=== PATIENT | male | born 1945 | race Caucasian/White ===

== ENCOUNTER 2016-11-21 21:01 | Inpatient (IN) | payer OTHER, MEDICARE ==
[~2016-11-21] VITALS: Ht 175.3 cm; Wt 97.6 kg
[~2016-11-21 21:01] MED LIST: AMBI5TAB PO; APIX2.5T PO; ASPI1TAB7 PO; ATOR40TA49 PO; CARV25TA PO; CLOP75 PO; CYMB60CA PO; DIGO0.12 PO; ISOS60 PO; KCL20 PO; LANTUS2P SC; LYRI100C PO; NOVOLOGSS SQ; REQU4TAB3 PO; ROBIDMS PO; TORS20 PO; VALA1TAB PO; VALS80 PO
[2016-11-21 21:13] VITALS: BP 194/144; PULSE 105; RESP 14
--- NOTE | 2016-11-21 21:17 | PD ---
HPI Chief Complaint: Respiratory Symptoms Time Seen by Provider: 21:17 Travel History International Travel<30 days: No Contact w/Intl Traveler<30days: No Traveled to known affect area: No PFSH Past Medical History Hx Anticoagulant Therapy: Yes Autoimmune Disease: No Anxiety: Yes Cancer: No Cardiac Catheterization: Yes Cardiovascular Problems: Yes (STENTS X5, DEFIB PACER) High Cholesterol: Yes Chest Pain: Yes Congestive Heart Failure: Yes Coronary Artery Disease: Yes Diabetes: Yes Diminished Hearing: Yes Deep Vein Thrombosis: Yes (THROMBOPHLEBITIS) Endocrine: Yes Gastrointestinal Disorders: Yes Genitourinary: Yes Hypertension: Yes Immune Disorder: No Implanted Vascular Access Dvce: Yes Musculoskeletal: No Neurologic: No Psychiatric: Yes Reproductive: No Respiratory: Yes (ARDS) Myocardial Infarction: Yes Renal Failure: Yes Sleep Apnea: Yes (CPAP) Thyroid Disease: Yes Past Surgical History Abdominal Surgery: Yes (PARTIAL SIGMOID COLECTOMY/TRELL) AICD: Yes (2013) Cardiac Surgery: Yes Cholecystectomy: Yes Coronary Stent: Yes (2010, 2014) Oral Surgery: Yes (WISDOM TEETH) Pacemaker: Yes (pacer/defibrillator) Tonsillectomy: Yes Other Surgery: Yes (IVC FILTER) Social History Alcohol Use: No Tobacco Use: No Substance Use: No Allergies-Medications (Allergen,Severity, Reaction): Coded Allergies: Bee Sting (Verified Allergy, Severe, Anaphylaxis, 08/25/15) Lisinopril (Verified Allergy, Severe, THROAT CLOSING, 08/25/15) Neosporin (Verified Allergy, Intermediate, RASH, 08/25/15) Polysporin (Verified Allergy, Intermediate, RASH, 08/25/15) Latex (Unverified Allergy, Unknown, Wheezing, 08/25/15) Propofol (Verified Adverse Reaction, Severe, 08/25/15) AGITATION Reported Meds & Prescriptions Reported Meds & Active Scripts Active Demadex (Torsemide) 20 Mg Tab 50 Mg PO DAILY 31 Days Diovan (Valsartan) 80 Mg Tab 80 Mg PO BID 31 Days Plavix (Clopidogrel Bisulfate) 75 Mg Tab 75 Mg PO DAILY 30 Days Robitussin Dm 10 Ml Udc (Guaifenesin/Dextromethorphan) 10 Ml Liqd 10 Ml PO Q6 PRN 10 Days Eliquis (Apixaban) 2.5 Mg Tab 2.5 Mg PO BID PRN 90 Days Lipitor 40 Mg Tab (Atorvastatin Calcium) 40 Mg Tab 40 Mg PO DAILY 30 Days Kcl 20 Meq Tab (Potassium Chloride) 20 Meq Tabcr 40 Meq PO BID 30 Days Imdur 60 Mg (Isosorbide Mononitrate) 60 Mg Tabcr 60 Mg PO DAILY Reported Ambien (Zolpidem Tartrate) 5 Mg Tab 5 Mg PO HS Novolog Insulin Supplemental Scale (Insulin Aspart) 100 /Ml Inj 2-12 Units SQ TIDACHS Max dose at bedtime:( )units; sugars less than 70, (0)units; sugars 150-199, (2)units; sugars 200-249, (4)units; sugars 250-299,(7)units; sugars 300-349, (10)units; sugars greater than 349, (12)units Lantus (Insulin Glargine) 100 Units/Ml Inj 50 Unit SC HS Valacyclovir Hcl (Valacyclovir HCl) 1 Gm Tab 1 Gm PO DAILY Aspirin 81 mg Tab (Aspirin) 81 Mg Tab 81 Mg PO DAILY Requip 4 mg (ROPINIROLE HYDROCHLORIDE 4 mg) 4 Mg Tab 4 Mg PO HS Carvedilol 25 mg (Carvedilol) 25 Mg Tab 25 Mg PO BID Cymbalta (Duloxetine HCl) 60 Mg Cap 60 Mg PO HS Lyrica (Pregabalin) 100 Mg Cap 100 Mg PO TID Digoxin 0.125 mg (Digoxin) 0.125 Mg Tab 0.125 Mg PO DAILY Data Data Last Documented VS Vital Signs Date Time Temp Pulse Resp B/P Pulse Ox O2 Delivery O2 Flow Rate FiO2 11/21/16 21:13 105 14 194/144 Thomas Marie Nov 21, 2016 21:17
[2016-11-21 21:28] VITALS: BP 220/129; PULSE 105; RESP 22; TEMP 97.9; O2SAT 93
[2016-11-21] MEDS ORDERED: SODIUM CHLORIDE 0.9% FLUSH 5 ML FLUSH IVF PRN (21:30)
[2016-11-21 21:34] VITALS: BP 137/66; PULSE 103; RESP 26; O2SAT 96
[2016-11-21] MEDS ORDERED: NITROGLYCERIN 2% OINT 1 GM PACKET TOP ONE (21:45)
[2016-11-21] MEDS ORDERED: MORPHINE SULFATE 4 MG/ML INJ IV ONE (21:45)
[2016-11-21] MEDS ORDERED: NITROGLYCERIN-DEXTROSE INJ 250 ML IV ONE (21:45)
[2016-11-21] MEDS ORDERED: ONDANSETRON HCL 4 MG/2 ML VIAL IVP ONE (21:45)
[2016-11-21 21:48] LABS: AUTOMATED NEUTROPHIL # 10.9 TH/MM3 (1.8-7.7); BASOPHIL # 0.1 TH/MM3 (0-0.2); BASOPHIL % 0.9 % (0.0-2.0); EOSINOPHIL # 0.3 TH/MM3 (0-0.4); EOSINOPHIL % 1.8 % (0.0-4.0); HEMATOCRIT 53.9 % (39.0-51.0); HEMO FLAGS DIFF FINAL; LYMPH % 11.2 % (9.0-44.0); LYMPHOCYTE # 1.6 TH/MM3 (1.0-4.8); MEAN CORPUSCULAR HEMOGLOBIN 33.5 PG (27.0-34.0); MEAN CORPUSCULAR HGB CONC 34.5 % (32.0-36.0); MONO % 10.7 % (0.0-8.0); NEUT % 75.4 % (16.0-70.0); PLATELET COUNT 172 TH/MM3 (150-450); RED BLOOD COUNT 5.56 MIL/MM3 (4.50-5.90); RED CELL DISTRIBUTION WIDTH 15.3 % (11.6-17.2); WHITE BLOOD COUNT 14.5 TH/MM3 (4.0-11.0)
--- NOTE | 2016-11-21 21:55 | PD ---
HPI Chief Complaint: Respiratory Symptoms Time Seen by Provider: 21:17 Travel History International Travel<30 days: No Contact w/Intl Traveler<30days: No Traveled to known affect area: No History of Present Illness HPI 71-year-old male presents with abdominal pain and nausea that is been present over the past couple of days. He states that he has history of prior sigmoid colectomy from prior bleeding issues and he is concerned he is developed a sigmoid volvulous. He denies prior history of volvulous. He states a couple hours ago he also developed chest pain and shortness of breath. He states Dr. Rodriguez is his chief architect. He states his last cardiac catheterization was about a year and a half ago when he had a stent placed. Quality pain is sharp. Severity is moderate. He denies specific modifying factors. He denies other concurrent complaints. PFSH Past Medical History Hx Anticoagulant Therapy: Yes Arthritis: Yes Autoimmune Disease: No Anxiety: Yes Cancer: No Cardiac Catheterization: Yes Cardiovascular Problems: Yes (5 stents) High Cholesterol: Yes Chest Pain: Yes Congestive Heart Failure: Yes Coronary Artery Disease: Yes Diabetes: Yes Patient Takes Glucophage: No Diminished Hearing: Yes (hearing aids) Deep Vein Thrombosis: Yes (THROMBOPHLEBITIS) Endocrine: Yes Gastrointestinal Disorders: Yes Genitourinary: Yes Hypertension: Yes Immune Disorder: No Implanted Vascular Access Dvce: Yes Medical other: Yes (right ankle fracture) Musculoskeletal: No Neurologic: Yes (neuropathy) Psychiatric: Yes Reproductive: No Respiratory: Yes (ARDS) Immunizations Current: Yes Myocardial Infarction: Yes Renal Failure: Yes Sleep Apnea: Yes (CPAP) Thyroid Disease: Yes Influenza Vaccination: No Past Surgical History Abdominal Surgery: Yes (PARTIAL SIGMOID COLECTOMY/TRELL) AICD: Yes Cardiac Surgery: Yes Cholecystectomy: Yes Coronary Stent: Yes (2010, 2014) Oral Surgery: Yes (WISDOM TEETH) Pacemaker: Yes Tonsillectomy: Yes Other Surgery: Yes (partial colectomy of sigmoid colon, ivc filter) Social History Alcohol Use: No Tobacco Use: No Substance Use: No Allergies-Medications (Allergen,Severity, Reaction): Coded Allergies: Bee Sting (Verified Allergy, Severe, Anaphylaxis, 11/21/16) Lisinopril (Verified Allergy, Severe, THROAT CLOSING, 11/21/16) Neosporin (Verified Allergy, Intermediate, RASH, 11/21/16) Polysporin (Verified Allergy, Intermediate, RASH, 11/21/16) Latex (Unverified Allergy, Unknown, Wheezing, 11/21/16) Propofol (Verified Adverse Reaction, Severe, 11/21/16) AGITATION Reported Meds & Prescriptions Reported Meds & Active Scripts Active Reported Novolog Inj (Insulin Aspart) 1,000 Unit/10 Ml Vial 0 SQ DIRECTED Sliding Scale as directed. Imodium A-D (Loperamide HCl) 2 Mg Cap 2 Mg PO DIRECTED PRN One capsule after each loose stool. Not to exceed 8 tablets per day. Plavix (Clopidogrel Bisulfate) 75 Mg Tab 75 Mg PO DAILY Lorazepam 1 Mg Tab 1 Mg PO PRN PRN Testosterone (Testosterone (Bulk)) 1 Pow Pow 200 Mg IM Q 3 WEEKS Aspirin 81 Mg Chew 81 Mg CHEW DAILY Potassium 75 Mg Tab 200 Meq PO BID Valacyclovir (Valacyclovir HCl) 1 Gm Tab 1,000 Mg PO DAILY Cymbalta DR (Duloxetine HCl) 60 Mg Capdr 60 Mg PO HS Lyrica (Pregabalin) 100 Mg Cap 100 Mg PO TID Ropinirole 4 Mg Tab 4 Mg PO HS Eliquis (Apixaban) 2.5 Mg Tab 2.5 Mg PO BID Carvedilol 25 Mg Tab 25 Mg PO BID Torsemide 100 Mg Tab 50 Mg PO DAILY Isosorbide Mononitrate 20 Mg Tab 60 Mg PO BID Take 2 doses 7 hours apart. Digoxin 0.125 Mg Tab 0.125 Mg PO DAILY Atorvastatin (Atorvastatin Calcium) 80 Mg Tab 80 Mg PO HS Lantus Inj (Insulin Glargine) 1,000 Unit/10 Ml Vial 60 Units SQ HS Ciprofloxacin (Ciprofloxacin HCl) 500 Mg Tab 500 Mg PO BID Review of Systems Except as stated in HPI: all other systems reviewed are Neg Physical Exam Narrative GENERAL: Well-nourished, well-developed patient. SKIN: Warm and dry. HEAD: Normocephalic and atraumatic. EYES: No injection or drainage. ENT: No nasal drainage noted. NECK: Supple, trachea midline. CARDIOVASCULAR: Regular rate and rhythm RESPIRATORY: Breath sounds equal bilaterally. No accessory muscle use. GASTROINTESTINAL: Abdomen soft, mild diffusely tender, nondistended. NEUROLOGICAL: Awake and alert. Motor and sensory grossly within normal limits. Normal speech. Data Data Last Documented VS Vital Signs Date Time Temp Pulse Resp B/P Pulse Ox O2 Delivery O2 Flow Rate FiO2 11/21/16 22:45 95 20 152/87 93 Nasal Cannula 4 11/21/16 21:28 97.9 Orders Electrocardiogram (11/21/16 21:24) B-Type Natriuretic Peptide (11/21/16 21:24) Ckmb (Isoenzyme) Profile (11/21/16 21:24) Complete Blood Count With Diff (11/21/16 21:24) Comprehensive Metabolic Panel (11/21/16 21:24) Magnesium (Mg) (11/21/16 21:24) Prothrombin Time / Inr (Pt) (11/21/16 21:24) Act Partial Throm Time (Ptt) (11/21/16 21:24) Troponin I (11/21/16 21:24) Lipase (11/21/16 21:24) Chest, Single Ap (11/21/16 21:24) Ecg Monitoring (11/21/16 21:24) Bilateral Bp Monitoring (11/21/16 21:24) Iv Access Insert/Monitor (11/21/16 21:24) Oximetry (11/21/16 21:24) Sodium Chloride 0.9% Flush (Ns Flush) (11/21/16 21:30) Nitroglycerin-Dextrose Inj (Nitroglyceri (11/21/16 21:45) Nitroglycerin 2% Oint (Nitroglycerin 2% (11/21/16 21:45) Morphine Inj (Morphine Inj) (11/21/16 21:45) Ondansetron Inj (Zofran Inj) (11/21/16 21:45) Consult Cardiology (11/21/16 ) CKMB (11/21/16 21:30) CKMB% (11/21/16 21:30) (Hub Use Only)Inp Phy Cons/Ref (11/21/16 ) Ct Abd/Pel W/O Iv Contrast (11/21/16 ) Labs Laboratory Tests Test 11/21/16 21:30 White Blood Count 14.5 TH/MM3 Red Blood Count 5.56 MIL/MM3 Hemoglobin 18.6 GM/DL Hematocrit 53.9 % Mean Corpuscular Volume 97.0 FL Mean Corpuscular Hemoglobin 33.5 PG Mean Corpuscular Hemoglobin 34.5 % Concent Red Cell Distribution Width 15.3 % Platelet Count 172 TH/MM3 Mean Platelet Volume 10.2 FL Neutrophils (%) (Auto) 75.4 % Lymphocytes (%) (Auto) 11.2 % Monocytes (%) (Auto) 10.7 % Eosinophils (%) (Auto) 1.8 % Basophils (%) (Auto) 0.9 % Neutrophils # (Auto) 10.9 TH/MM3 Lymphocytes # (Auto) 1.6 TH/MM3 Monocytes # (Auto) 1.5 TH/MM3 Eosinophils # (Auto) 0.3 TH/MM3 Basophils # (Auto) 0.1 TH/MM3 CBC Comment DIFF FINAL Differential Comment Prothrombin Time 11.2 SEC Prothromb Time International 1.0 RATIO Ratio Activated Partial 27.3 SEC Thromboplast Time Sodium Level 140 MEQ/L Potassium Level 4.0 MEQ/L Chloride Level 101 MEQ/L Carbon Dioxide Level 32.1 MEQ/L Anion Gap 7 MEQ/L Blood Urea Nitrogen 36 MG/DL Creatinine 2.23 MG/DL Estimat Glomerular Filtration 29 ML/MIN Rate Random Glucose 227 MG/DL Calcium Level 10.0 MG/DL Magnesium Level 2.2 MG/DL Total Bilirubin 2.2 MG/DL Aspartate Amino Transf 39 U/L (AST/SGOT) Alanine Aminotransferase 35 U/L (ALT/SGPT) Alkaline Phosphatase 109 U/L Total Creatine Kinase 117 U/L Creatine Kinase MB 2.4 NG/ML Troponin I 0.29 NG/ML B-Type Natriuretic Peptide 2488 PG/ML Total Protein 8.5 GM/DL Albumin 3.5 GM/DL Lipase 111 U/L MDM Medical Decision Making Medical Screen Exam Complete: Yes Emergency Medical Condition: Yes Medical Record Reviewed: Yes (pmh confirmed) Interpretation(s) EKG shows elevation in V1 through V3 with depression V5 V6 similar to prior CBC & BMP Diagram 11/21/16 21:30 Last 24 hours Impressions Chest X-Ray 11/21/162123 Signed Impressions: Service Date/Time: Monday, November 21, 2016 21:54 - CONCLUSION: No acute disease. No significant change has occurred. Kameron Andre MD CT abdomen shows hernia, enlarged prostate no emergent findings Differential Diagnosis Obstruction, gastroenteritis, stone, cardiac, gastritis... Narrative Course Will check blood work, chest x-ray, CT scan abdominal pelvis and reevaluate After review of EKG will discuss with chief architect although this looks similar to prior ed workup reviewed, patient updated, agrees to admit Physician Communication Physician Communication dr gipson states to place consult, hold eliquis and can talk over giving heparin in morning, can give beta rosi for further bp control as needed dr weiss agrees to admit Diagnosis Primary Impression: Unstable angina Additional Impressions: Renal insufficiency CHF (congestive heart failure) Qualified Code: I50.9 - Acute on chronic congestive heart failure, unspecified congestive heart failure type Abdominal pain Qualified Code: R10.9 - Abdominal pain, unspecified location Admitting Information Admitting Physician Requests: Admit Sarina Reed MD Nov 21, 2016 21:55
[2016-11-21 21:56] LABS: APTT (PATIENT) 27.3 SEC (24.3-30.1); PROTHROMBIN TIME - PATIENT 11.2 SEC (9.8-11.6)
[2016-11-21] MEDS ORDERED: CARV25TA PO (21:56)
[2016-11-21] MEDS ORDERED: DIGO0.12 PO (21:56)
[2016-11-21] MEDS ORDERED: APIX2.5T PO (21:56)
[2016-11-21] MEDS ORDERED: ATOR1TAB18 PO (21:56)
[2016-11-21] MEDS ORDERED: LANTUS2P SQ (21:56)
[2016-11-21] MEDS ORDERED: LORA1TAB12 PO (21:56)
[2016-11-21] MEDS ORDERED: ROPI4TAB PO (21:56)
[2016-11-21] MEDS ORDERED: LOPE7.5C PO (21:56)
[2016-11-21] MEDS ORDERED: POTA75TA PO (21:56)
[2016-11-21] MEDS ORDERED: TEST-55 IM (21:56)
[2016-11-21] MEDS ORDERED: TORS100T2 PO (21:56)
[2016-11-21] MEDS ORDERED: LYRI100C PO (21:56)
[2016-11-21] MEDS ORDERED: NOVOLOGP2 SQ (21:56)
[2016-11-21] MEDS ORDERED: VALA1TAB PO (21:56)
[2016-11-21] MEDS ORDERED: PLAV75TA29 PO (21:56)
[2016-11-21] MEDS ORDERED: ASPI81CH CHEW (21:56)
[2016-11-21] MEDS ORDERED: CIPR500T2 PO (21:56)
[2016-11-21] MEDS ORDERED: CYMB60CA PO (21:56)
[2016-11-21] MEDS ORDERED: ISOS20TA PO (21:56)
--- NOTE | 2016-11-21 22:03 | RADRPT ---
EXAM DATE/TIME: 11/21/2016 21:54 [facility] COMPARISON: CHEST SINGLE AP, August 25, 2015, 15:14. INDICATIONS : Chest pain. MEDICAL HISTORY : Hypertension. Diabetes. SURGICAL HISTORY : Pacemaker. ENCOUNTER: Initial ACUITY: 2 days PAIN SCORE: 8/10 LOCATION: Bilateral chest FINDINGS: Again noted is a pacemaker overlying the left hemithorax atherosclerotic changes inclusive of left ve ntricular cardiomegaly. Vascularity is distinct the lung jay are clear. There is no acute cardiopu lmonary process. CONCLUSION: No acute disease. No significant change has occurred. Kameron Andre MD on November 21, 2016 at 22:00 Board Certified Radiologist. This report was verified electronically.
[2016-11-21 22:29] LABS: ALKALINE PHOSPHATASE 109 U/L (45-117); ALT (GPT) 35 U/L (12-78); ANION GAP 7 MEQ/L (5-15); AST (GOT) 39 U/L (15-37); BICARBONATE 32.1 MEQ/L (21.0-32.0); BLOOD UREA NITROGEN 36 MG/DL (7-18); CHLORIDE 101 MEQ/L (98-107); CREATINE KINASE 117 U/L (39-308); GLOMERULAR FILTRATION RATE 29 ML/MIN (>89); MAGNESIUM 2.2 MG/DL (1.5-2.5); SODIUM (NA) 140 MEQ/L (136-145); TOTAL BILIRUBIN ADULT 2.2 MG/DL (0.2-1.0)
[2016-11-21 22:45] VITALS: BP 152/87; PULSE 95; RESP 20; O2SAT 93
[2016-11-21 22:48] LABS: CKMB 2.4 NG/ML (0.5-3.6)
[2016-11-22] VITALS (12 sets, daily range): BP systolic 95–155; BP diastolic 60–94; PULSE 59–82; RESP 15–18; TEMP 97.7–98.2; O2SAT 93–95
[2016-11-22] MEDS ORDERED: ASPIRIN 325 MG TAB PO SCH (01:37)
[2016-11-22] MEDS ORDERED: ASPIRIN 325 MG TAB ONE (01:50)
--- NOTE | 2016-11-22 02:15 | RADRPT ---
EXAM DATE/TIME: 11/22/2016 00:44 [facility] COMPARISON: No previous studies available for comparison. INDICATIONS : Upper quadrant abdominal pain. ORAL CONTRAST: No oral contrast ingested. RADIATION DOSE: 19.38 CTDIvol (mGy) MEDICAL HISTORY : Myocardial infarction. Hypertension. Deep venous thrombosis.Renal failure. Diabetes. Coronary artery disease. SURGICAL HISTORY : Pacemaker. Cholecystectomy.IVC filter. Partial colectomy of sigmoid colon. ENCOUNTER: Initial ACUITY: 1 day PAIN SCALE: 2/10 LOCATION: Bilateral upper quadrant abdomen TECHNIQUE: Volumetric scanning of the abdomen and pelvis was performed. Using automated exposure control and ad justment of the mA and/or kV according to patient size, radiation dose was kept as low as reasonably achievable to obtain optimal diagnostic quality images. FINDINGS: LOWER LUNGS: The visualized lower lungs are clear. LIVER: Homogeneous density without lesion for noncontrast technique. There is no dilation of the biliary tr ee. Hemoclips in the abrahan from prior cholecystectomy. SPLEEN: Normal size without lesion. PANCREAS: Within normal limits. KIDNEYS: Normal in size and shape. There is no mass, stone, or hydronephrosis. ADRENAL GLANDS: Within normal limits. VASCULAR: There is no aortic aneurysm. BOWEL/MESENTERY: The stomach, small bowel, and colon demonstrate no acute abnormality. There is no free intraperitone al air or fluid. ABDOMINAL WALL: Within normal limits. RETROPERITONEUM: There is no lymphadenopathy. IVC filter. BLADDER: No wall thickening or mass. REPRODUCTIVE: Mild prominence of the prostate measuring 6.3 cm in width. INGUINAL: No adenopathy. Small left-sided fat containing inguinal hernia. MUSCULOSKELETAL: Within normal limits for patient age. CONCLUSION: 1. Mild enlargement of the prostate. 2. No renal stones or hydronephrosis. 3. No dilated loops of small large bowel. 4. Small fat containing left inguinal hernia. Migel Kirby MD on November 22, 2016 at 1:16 Board Certified Radiologist. This report was verified electronically.
[2016-11-22] MEDS ORDERED: RESP: ALBUTEROL 2.5 MG/IPRATROPIUM 0.5 MG NEB (PRN) NEB (03:45)
[2016-11-22] MEDS ORDERED: ACETAMINOPHEN 325 MG TAB PO PRN (03:45)
[2016-11-22] MEDS ORDERED: DEXTROSE 50% IN WATER 50 ML VIAL(D50) IV PUSH PRN (03:45)
[2016-11-22] MEDS ORDERED: MORPHINE SULFATE 4 MG/ML INJ IV PRN (03:45)
[2016-11-22] MEDS ORDERED: GLUCAGON 1 MG/ML VIAL OTHER PRN (03:45)
[2016-11-22] MEDS ORDERED: ACETAMINOPHEN/HYDROcodone 325 MG/5 MG TAB PO PRN (03:45)
[2016-11-22] MEDS ORDERED: ONDANSETRON HCL 4 MG/2 ML VIAL IVP PRN (03:45)
[2016-11-22] MEDS ORDERED: SODIUM CHLORIDE 0.9% FLUSH 5 ML FLUSH FLUSH PRN (03:45)
[2016-11-22] MEDS ORDERED: BISACODYL 10 MG SUPP PR PRN (03:45)
--- NOTE | 2016-11-22 04:23 | HHI.HP ---
H[facility]ician Chucky Nguyen M.D. Admission Diagnosis Diagnoses: (1) Unstable angina Diagnosis: Principal (2) CHF (congestive heart failure) Diagnosis: Principal (3) Renal insufficiency Diagnosis: Principal (4) Dental abscess Diagnosis: Principal (5) Abdominal pain Diagnosis: Principal (6) HTN (hypertension) Diagnosis: Principal (7) DM (diabetes mellitus) Diagnosis: Principal Travel History International Travel<30 Days: No Contact w/Intl Traveler <30 Da: No Traveled to Known Affected Are: No History of Present Illness This is a 71-year-old male with a PMH of HTN, CAD, CHF (Echo 01/01/15 w/ EF 25-30 %), s/p AICD (Medtronic), h/o DVT s/p IVC Filter, Sleep Apnea, DM and CKD Stage III who came into the ER w/ complaints of SOB and chest pain. Per pt, he's had progressive SOB x3 days, worse w/ exertion. Denies cough or sick contacts. Also notes generalized abdominal pain, however no nausea/vomiting. Reports recent diagnosis of dental/maxillary abscess approx 2wks ago, has been self- medicating w/ Cipro x3 days which he had at home. Upcoming appt w/ Dentist/[facility] on Wednesday for decision regarding management. +post-nasal drip. On arrival, BP 194/144, HR 105, O2 sat 93% on 4L NC, Afebrile. Not on home O2. Currently BP 152/87, HR 95. WBC 14.5, elevated neutrophil count. Creatinine 2.23, previously 1.6 on 08/26/15. Troponin 0.29. BNP 2488. CXR w/ no acute findings. CT Abd/Pelvis w/ mild enlargement of the prostate and small fat- containing left inguinal hernia, no significant findings. S/p Morphine and NTG in ER w/ significant improvement in pain complaints, currently chest pain free. Review of Systems Other ROS: 14 point review of systems otherwise negative. Past Family Social History Past Medical History PMH: HTN, CAD, CHF (Echo 01/01/15 w/ EF 25-30%), s/p AICD (Medtronic), h/o DVT s /p IVC Filter, Sleep Apnea, DM and CKD Stage III Past Surgical History PAST SURGICAL HISTORY: AICD (Medtronic), Partial Sigmoid Colectomy, Cholecystectomy, Dental Surgery, IVC Filter Allergies: Coded Allergies: Bee Sting (Verified Allergy, Severe, Anaphylaxis, 11/21/16) Lisinopril (Verified Allergy, Severe, THROAT CLOSING, 11/21/16) Neosporin (Verified Allergy, Intermediate, RASH, 11/21/16) Polysporin (Verified Allergy, Intermediate, RASH, 11/21/16) Latex (Unverified Allergy, Unknown, Wheezing, 11/21/16) Propofol (Verified Adverse Reaction, Severe, 11/21/16) AGITATION Family History PAST FAMILY HISTORY: Reviewed, positive for DM and extensive history of CAD Social History PAST SOCIAL HISTORY: Negative for alcohol, tobacco or drugs. Patient is a [employer] Operator. Physical Exam Vital Signs Vital Signs Date Time Temp Pulse Resp B/P Pulse Ox O2 Delivery O2 Flow Rate FiO2 11/21/16 22:45 95 20 152/87 93 Nasal Cannula 4 11/21/16 21:34 103 26 137/66 96 Nasal Cannula 4 11/21/16 21:29 94 Nasal Cannula 4 11/21/16 21:28 97.9 105 22 220/129 93 Nasal Cannula 4 11/21/16 21:13 105 14 194/144 Physical Exam PE: GENERAL: Very pleasant elderly white male in no acute distress. HEENT: PERRLA, EOMI. No scleral icterus or conjunctival pallor. No lid lag or facial droop. +left maxillary sinus tenderness to palpation CARDIOVASCULAR: Regular rate and rhythm. No obvious murmurs to auscultation. No chest tenderness to palpation. RESPIRATORY: No obvious rhonchi or wheezing. Clear to auscultation. Breath sounds equal bilaterally. GASTROINTESTINAL: Abdomen soft, non-tender, nondistended. BS normal. MUSCULOSKELETAL: Extremities without clubbing, cyanosis, or edema. No obvious deformities. NEUROLOGICAL: Awake, alert and oriented x4. No focal neurologic deficits. Moving both upper and lower extremities spontaneously. Laboratory Laboratory Tests Test 11/21/16 21:30 White Blood Count 14.5 Red Blood Count 5.56 Hemoglobin 18.6 Hematocrit 53.9 Mean Corpuscular Volume 97.0 Mean Corpuscular Hemoglobin 33.5 Mean Corpuscular Hemoglobin 34.5 Concent Red Cell Distribution Width 15.3 Platelet Count 172 Mean Platelet Volume 10.2 Neutrophils (%) (Auto) 75.4 Lymphocytes (%) (Auto) 11.2 Monocytes (%) (Auto) 10.7 Eosinophils (%) (Auto) 1.8 Basophils (%) (Auto) 0.9 Neutrophils # (Auto) 10.9 Lymphocytes # (Auto) 1.6 Monocytes # (Auto) 1.5 Eosinophils # (Auto) 0.3 Basophils # (Auto) 0.1 CBC Comment DIFF FINAL Differential Comment Prothrombin Time 11.2 Prothromb Time International 1.0 Ratio Activated Partial 27.3 Thromboplast Time Sodium Level 140 Potassium Level 4.0 Chloride Level 101 Carbon Dioxide Level 32.1 Anion Gap 7 Blood Urea Nitrogen 36 Creatinine 2.23 Estimat Glomerular Filtration 29 Rate Random Glucose 227 Calcium Level 10.0 Magnesium Level 2.2 Total Bilirubin 2.2 Aspartate Amino Transf 39 (AST/SGOT) Alanine Aminotransferase 35 (ALT/SGPT) Alkaline Phosphatase 109 Total Creatine Kinase 117 Creatine Kinase MB 2.4 Troponin I 0.29 B-Type Natriuretic Peptide 2488 Total Protein 8.5 Albumin 3.5 Lipase 111 Result Diagram: 11/21/16212911/21/162129 Assessment and Plan Problem List: (1) Unstable angina ICD Code: I20.0 Status: Acute (2) CHF (congestive heart failure) ICD Code: I50.9 Status: Chronic (3) Renal insufficiency ICD Code: N28.9 Status: Acute (4) Dental abscess ICD Code: K04.7 Status: Acute (5) Abdominal pain ICD Code: R10.9 Status: Acute (6) HTN (hypertension) ICD Code: I10 Status: Chronic (7) DM (diabetes mellitus) ICD Code: E11.9 Status: Chronic Assessment and Plan A/P: 1. Unstable Angina: h/o CAD, now w/ c/o chest pain. Trop 0.29, EKG w/ no acute changes. Follows w/ Dr. Rodriguez as outpatient, Dr. Lorenzo consulted by ER physician, recommendation to hold Eliquis and possible Heparin in am, continue w/ B-rosi. Check serial cardiac enzymes, NTG/Morphine as needed. 2. CHF: Acute on Chronic. Systolic. Echo 01/01/15 w/ EF 25-30%, s/p AICD ( [employer]). BNP elevated to 2488, however no significant fluid overload on exam , CXR w/ no pulmonary congestion or edema, images reviewed by me. Possibly related to underlying dilated cardiomyopathy. Repeat BNP, resume home diuretics -caution w/ renal function. 3. Renal Insufficiency: Acute on Chronic. h/o CKD Stage III. Creatinine 2.23 , previously 1.69 on 08/26/15. Not following w/ Material Planning Analyst, states pending referral by PCP. Repeat labs in am, caution w/ cardiac intervention if needed. 4. Dental Abscess: recent diagnosis of left dental/maxillary abscess, self- medicating w/ Cipro x3 days. Upcoming appt w/ Dentist/[facility] on Wednesday for intervention. +WBC, Afebrile. Augmentin 875mg bid, outpatient follow up. 5. Abdominal Pain: On arrival, complaints of abdominal pain, pt concerned for possible volvulus however CT Abd/Pelvis negative for acute findings, images reviewed by me. S/p Morphine in ER w/ significant improvement. 6. DM: Sliding scale w/ Accu-Cheks. Resume home Lantus. 7. DVT Prophylaxis: Hold Eliquis per Cardiology recommendations. 8. Social work for d/c planning as needed. 9. Case discussed w/ ER physician at length. Physician Certification 2 Midnight Certification Type: Admission for Inpatient Services Order for Inpatient Services The services are ordered in accordance with Medicare regulations or non- Medicare payer requirements, as applicable. In the case of services not specified as inpatient-only, they are appropriately provided as inpatient services in accordance with the 2-midnight benchmark. Estimated LOS (days): 2 days is the estimated time the patient will need to remain in the hospital, assuming treatment plan goals are met and no additional complications. Post-Hospital Plan: Home Problem Qualifiers (1) CHF (congestive heart failure): Qualified Code: I50.9 - Acute on chronic congestive heart failure, unspecified congestive heart failure type (2) Abdominal pain: Qualified Code: R10.9 - Abdominal pain, unspecified location Bobbi Martini MD Nov 22, 2016 04:23
[2016-11-22] MEDS ORDERED: INSULIN ASPART 1,000 UNITS/10 ML VIAL SQ ONE (07:22)
[2016-11-22] MEDS: INSULIN ASPART SUPPLEMENTAL SCALE SQ SCH ×4 (07:23→20:49)
[2016-11-22 08:11] LABS: AUTOMATED NEUTROPHIL # 6.6 TH/MM3 (1.8-7.7); BASOPHIL # 0.1 TH/MM3 (0-0.2); BASOPHIL % 0.7 % (0.0-2.0); EOSINOPHIL # 0.3 TH/MM3 (0-0.4); EOSINOPHIL % 3.1 % (0.0-4.0); HEMATOCRIT 49.3 % (39.0-51.0); HEMO FLAGS DIFF FINAL; LYMPH % 14.6 % (9.0-44.0); LYMPHOCYTE # 1.4 TH/MM3 (1.0-4.8); MEAN CELL VOLUME 98.5 FL (80.0-100.0); MEAN CORPUSCULAR HEMOGLOBIN 33.7 PG (27.0-34.0); MEAN CORPUSCULAR HGB CONC 34.2 % (32.0-36.0); MONO % 10.4 % (0.0-8.0); NEUT % 71.2 % (16.0-70.0); PLATELET COUNT 138 TH/MM3 (150-450); RED BLOOD COUNT 5.01 MIL/MM3 (4.50-5.90); RED CELL DISTRIBUTION WIDTH 15.6 % (11.6-17.2); WHITE BLOOD COUNT 9.3 TH/MM3 (4.0-11.0)
[2016-11-22 08:35] LABS: ALKALINE PHOSPHATASE 150 U/L (45-117); ALT (GPT) 48 U/L (12-78); ANION GAP 8 MEQ/L (5-15); AST (GOT) 46 U/L (15-37); BICARBONATE 33.3 MEQ/L (21.0-32.0); BLOOD UREA NITROGEN 37 MG/DL (7-18); CHLORIDE 101 MEQ/L (98-107); GLOMERULAR FILTRATION RATE 30 ML/MIN (>89); POTASSIUM 3.4 MEQ/L (3.5-5.1); SODIUM (NA) 142 MEQ/L (136-145)
[2016-11-22] MEDS ORDERED: TORSEMIDE 20 MG TAB PO SCH (09:00)
[2016-11-22] MEDS ORDERED: ASPIRIN 81 MG CHEW TAB CHEW SCH (09:00)
[2016-11-22] MEDS ORDERED: METOPROLOL TARTRATE 25 MG TAB PO SCH (09:00)
[2016-11-22] MEDS ORDERED: PRAVASTATIN SOD 40 MG TAB PO SCH (09:00)
[2016-11-22] MEDS ORDERED: CARVEDILOL 12.5 MG TAB PO SCH (09:00)
[2016-11-22] MEDS ORDERED: CLOPIDOGREL 75 MG TAB PO SCH (09:00)
[2016-11-22] MEDS: DIGOXIN 0.125 MG TAB PO SCH (09:09)
[2016-11-22] MEDS: ASPIRIN EC 81 MG TABEC PO SCH (09:10)
[2016-11-22] MEDS: SODIUM CHLORIDE 0.9% FLUSH 5 ML FLUSH FLUSH SCH ×2 (09:11→20:50)
[2016-11-22] MEDS ORDERED: PILL SPLITTER OTHER PRN (09:30)
[2016-11-22] MEDS: AMOXICILLIN/CLAVULANATE K 875 MG TAB PO SCH ×2 (10:01→20:49)
[2016-11-22] MEDS: PREGABALIN 100 MG CAP PO SCH ×3 (10:01→18:11)
[2016-11-22] MEDS: ISOSORBIDE MONONITRATE 20 MG TAB PO SCH ×2 (10:01→20:48)
--- NOTE | 2016-11-22 10:11 | HHI.FPPN ---
Subjective Remarks Patient seen and examined this am. VItals are stable and he is afebrile. Saturating in the 90s on 4L. Seen by cardiology this am. Denies CP, SOB, or difficulty breathing. Has plans to see dentist this week, apt originally scheduled for Wednesday. Able to lay flat without any difficulties. Objective Vitals Vital Signs Date Time Temp Pulse Resp B/P Pulse Ox O2 Delivery O2 Flow Rate FiO2 11/22/16 08:00 98.0 76 18 137/72 95 11/22/16 06:55 97.7 77 16 155/94 95 11/22/16 06:29 72 18 143/78 95 Nasal Cannula 4 11/22/16 04:24 93 Nasal Cannula 4.00 11/21/16 22:45 95 20 152/87 93 Nasal Cannula 4 11/21/16 21:34 103 26 137/66 96 Nasal Cannula 4 11/21/16 21:29 94 Nasal Cannula 4 11/21/16 21:28 97.9 105 22 220/129 93 Nasal Cannula 4 11/21/16 21:13 105 14 194/144 I/O 11/21/16 11/21/16 11/21/16 11/22/16 11/22/16 11/22/16 07:00 15:00 23:00 07:00 15:00 23:00 Output Total 200 ml Balance -200 ml Output Urine Total 200 ml Result Diagram: 11/22/16 0749 11/22/16 0749 Imaging Last Impressions Chest X-Ray 11/21/162123 Signed Impressions: Service Date/Time: Monday, November 21, 2016 21:54 - CONCLUSION: No acute disease. No significant change has occurred. Kameron Andre MD Abdomen/Pelvis CT 11/21/16 0000 Signed Impressions: Service Date/Time: Tuesday, November 22, 2016 00:44 - CONCLUSION: 1. Mild enlargement of the prostate. 2. No renal stones or hydronephrosis. 3. No dilated loops of small large bowel. 4. Small fat containing left inguinal hernia. Migel Kirby MD Objective Remarks GENERAL: Very pleasant elderly white male in no acute distress. HEENT: PERRLA, EOMI. No scleral icterus or conjunctival pallor. No lid lag or facial droop. +mild left maxillary sinus tenderness to palpation CARDIOVASCULAR: Regular rate and rhythm. No obvious murmurs to auscultation. No chest tenderness to palpation. RESPIRATORY: No obvious rhonchi or wheezing. Clear to auscultation. Breath sounds equal bilaterally. GASTROINTESTINAL: Abdomen soft, non-tender, nondistended. BS normal. MUSCULOSKELETAL: Extremities without clubbing, cyanosis, or edema. No obvious deformities. NEUROLOGICAL: Awake, alert and oriented x4. No focal neurologic deficits. Moving both upper and lower extremities spontaneously. A/P Assessment and Plan 71 yo female with PMH of HTN, CAD, CHF, s/p AICD, h/o DVT s/p IVC filter, sleep apnea, DM, and CKD stage 3 who presented to ER with SOB and CP, admitted for unstable angina and acute CHF exacerbation. 1. Unstable Angina: h/o CAD, now w/ c/o chest pain. Follows w/ Dr. Rodriguez as outpatient, Dr. Lorenzo consulted following: torsemide 50 mg PO BID, Eliquis 2.5 mg BID, Carvedilol 25 mg BID. Trop neg x2, EKGs reviewed some ST changes noted in anterolateral leads appear similar to previous. 2. CHF: Acute on Chronic. Systolic. Echo 01/01/15 w/ EF 25-30%, s/p AICD ( [employer]) reports an ECHO performed in [place] in summer 2015 that was unchanged from previous. BNP on admission 2488, repeat 1820. ECHO ordered and pending. Strict I & Os. Fluid restrict. Diuresis per cards- torsemide 50 mg BID (with KCl bonita) 3. Renal Insufficiency: Acute on Chronic. h/o CKD Stage III. Creatinine 2.23 , previously 1.69 on 08/26/15. Not following w/ Trimming Machine Set Up Operator, states pending referral by PCP. Cr improving today. Caution with aggressive diuresis. 4. Dental Abscess: recent diagnosis of left dental/maxillary abscess, self- medicating w/ Cipro x3 days. Upcoming appt w/ Dentist/[facility] on Wednesday for intervention. +WBC, Afebrile. Augmentin 875mg bid, outpatient follow up. 5. Abdominal Pain: On arrival, complaints of abdominal pain, pt concerned for possible volvulus however CT Abd/Pelvis negative for acute findings. S/p Morphine in ER w/ significant improvement. 6. DM: Sliding scale w/ Accu-Cheks. Resume home Lantus. 7. DVT Prophylaxis: Hold Eliquis per Cardiology recommendations. 8. Hypokalemia: 3.4, 30 meq KCL x1 now, then 20 meq BID 8. Social work for d/c planning as needed. Discharge Planning Discharge pending cardiac clearance. Likely 1-2 days. Marisol Claire MD R3 Nov 22, 2016 10:11
[2016-11-22] MEDS ORDERED: POTASSIUM CHLORIDE 10 MEQ CONTROLLED RELEASE TAB PO ONE (10:15)
[2016-11-22] MEDS: CARVEDILOL 12.5 MG TAB PO SCH ×2 (10:17→20:49)
[2016-11-22] MEDS: APIXABAN 2.5 MG TABLET PO SCH ×2 (10:35→20:50)
--- NOTE | 2016-11-22 15:51 | EKG ---
Date Performed: 11/21/2016 Time Performed: 21:29:33 PTAGE: 71 years EKG: SINUS TACHYCARDIA LEFT BUNDLE BRANCH BLOCK WITH SECONDARY ST/T WAVE CHANGES Compared to the PREVIOUS TRACING from 08/26/15 at 03:25, no significant change noted other than rate inc rease DOCTOR: Amadeo Darby Interpretating Date/Time 11/22/2016 15:49:22
[2016-11-22] MEDS: DULoxetine HCl DR 60 MG CAP PO SCH (20:48)
[2016-11-22] MEDS: TORSEMIDE 20 MG TAB PO SCH (20:48)
[2016-11-22] MEDS: POTASSIUM CHLORIDE 20 MEQ CONTROLLED RELEASE TAB PO SCH (20:48)
[2016-11-22] MEDS: INSULIN DETEMIR 100 UNITS/ML VIAL SQ SCH (20:49)
[2016-11-22] MEDS: ATORVASTATIN 80 MG TAB PO SCH (20:49)
[2016-11-22] MEDS ORDERED: INSULIN GLARGINE 1,000 UNITS/10 ML VIAL SQ SCH (21:00)
[2016-11-23] VITALS (18 sets, daily range): BP systolic 112–158; BP diastolic 67–79; PULSE 59–95; RESP 15–18; TEMP 96.7–98.7; O2SAT 95–98
[2016-11-23] MEDS ORDERED: NITROGLYCERIN 0.3 MG SL 100 TABS/BTL SL PRN (03:30)
[2016-11-23] MEDS: INSULIN ASPART SUPPLEMENTAL SCALE SQ SCH ×4 (06:03→20:44)
[2016-11-23 06:31] LABS: BICARBONATE 34.3 MEQ/L (21.0-32.0)
--- NOTE | 2016-11-23 08:17 | HHI.PR ---
Subjective Remarks Says he had chest pain at night and he got better with morphine. No sob. No diaphoresis, n/v/d/c. Trops trending down. Objective Vitals Vital Signs Date Time Temp Pulse Resp B/P Pulse Ox O2 Delivery O2 Flow Rate FiO2 11/23/16 03:30 60 11/23/16 03:30 98.0 60 15 136/79 95 11/22/16 23:30 59 11/22/16 23:30 97.9 59 15 95/60 95 11/22/16 20:43 95 21 11/22/16 19:24 97.7 60 17 122/72 95 11/22/16 19:00 60 11/22/16 16:00 98.0 82 18 136/81 95 11/22/16 16:00 68 11/22/16 14:24 94 21 11/22/16 12:00 82 11/22/16 12:00 98.2 82 18 143/68 95 I/O 11/22/16 11/22/16 11/22/16 11/23/16 11/23/16 11/23/16 07:00 15:00 23:00 07:00 15:00 23:00 Intake Total 1200 ml 480 ml Output Total 200 ml 1025 ml 500 ml Balance -200 ml 175 ml -20 ml Intake Oral 1200 ml 480 ml Output Urine Total 200 ml 1025 ml 500 ml # Bowel Movements 0 Result Diagram: 11/22/16 0749 11/23/16 0509 Imaging Last Impressions Chest X-Ray 11/21/164 Signed Impressions: Service Date/Time: Monday, November 21, 2016 21:54 - CONCLUSION: No acute disease. No significant change has occurred. Kameron Andre MD Abdomen/Pelvis CT 11/21/16 0000 Signed Impressions: Service Date/Time: Tuesday, November 22, 2016 00:44 - CONCLUSION: 1. Mild enlargement of the prostate. 2. No renal stones or hydronephrosis. 3. No dilated loops of small large bowel. 4. Small fat containing left inguinal hernia. Migel Kirby MD Objective Remarks GENERAL: Very pleasant elderly white male in no acute distress. HEENT: PERRLA, EOMI. No scleral icterus or conjunctival pallor. No lid lag or facial droop. +mild left maxillary sinus tenderness to palpation CARDIOVASCULAR: Regular rate and rhythm. No obvious murmurs to auscultation. No chest tenderness to palpation. RESPIRATORY: No obvious rhonchi or wheezing. Clear to auscultation. Breath sounds equal bilaterally. GASTROINTESTINAL: Abdomen soft, non-tender, nondistended. BS normal. MUSCULOSKELETAL: Extremities without clubbing, cyanosis, or edema. No obvious deformities. NEUROLOGICAL: Awake, alert and oriented x4. No focal neurologic deficits. Moving both upper and lower extremities spontaneously. A/P Problem List: (1) Unstable angina ICD Code: I20.0 Status: Acute (2) CHF (congestive heart failure) ICD Code: I50.9 Status: Chronic (3) Renal insufficiency ICD Code: N28.9 Status: Acute (4) Dental abscess ICD Code: K04.7 Status: Acute (5) Abdominal pain ICD Code: R10.9 Status: Acute (6) HTN (hypertension) ICD Code: I10 Status: Chronic (7) DM (diabetes mellitus) ICD Code: E11.9 Status: Chronic Assessment and Plan 71 yo female with PMH of HTN, CAD, CHF, s/p AICD, h/o DVT s/p IVC filter, sleep apnea, DM, and CKD stage 3 who presented to ER with SOB and CP, admitted for unstable angina and acute CHF exacerbation. 1. Unstable Angina: h/o CAD, now w/ c/o chest pain. Follows w/ Dr. Rodriguez as outpatient, Dr. Lorenzo consulted and following. Continue torsemide 50 mg PO BID, Eliquis 2.5 mg BID, Carvedilol 25 mg BID. Trop neg x3, EKGs reviewed some ST changes noted in anterolateral leads appear similar to previous. Poss cardiac cath vs stress test 2. CHF: Acute on Chronic. Systolic. Echo 01/01/15 w/ EF 25-30%, s/p AICD ( [employer]) reports an ECHO performed in [place] in summer 2015 that was unchanged from previous. BNP on admission 2488, repeat 1820. ECHO ordered and pending. Strict I & Os. Fluid restrict. Diuresis per cards- torsemide 50 mg BID (with KCl bonita) 3. Renal Insufficiency: Acute on Chronic. h/o CKD Stage III. Creatinine 2.23 , previously 1.69 on 08/26/15. Not following w/ Ballistics Expert, states pending referral by PCP. Cr improving today. Caution with aggressive diuresis. 4. Dental Abscess: recent diagnosis of left dental/maxillary abscess, self- medicating w/ Cipro x3 days. Upcoming appt w/ Dentist/[facility] on Wednesday for intervention. +WBC, Afebrile. Augmentin 875mg bid, outpatient follow up. 5. Abdominal Pain: On arrival, complaints of abdominal pain, pt concerned for possible volvulus however CT Abd/Pelvis negative for acute findings. S/p Morphine in ER w/ significant improvement. 6. DM: Sliding scale w/ Accu-Cheks. Resume home Lantus. 7. DVT Prophylaxis: Hold Eliquis per Cardiology recommendations. 8. Hypokalemia: 3.4, 30 meq KCL x1 now, then 20 meq BID 8. Social work for d/c planning as needed. Discharge Planning Discharge pending improvement, cardiac clearance. Problem Qualifiers (1) CHF (congestive heart failure): Qualified Code: I50.9 - Acute on chronic congestive heart failure, unspecified congestive heart failure type (2) Abdominal pain: Qualified Code: R10.9 - Abdominal pain, unspecified location Abimbola Lockhart MD Nov 23, 2016 08:17
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
[2016-11-23] MEDS: APIXABAN 2.5 MG TABLET PO SCH (08:58)
[2016-11-23] MEDS: PREGABALIN 100 MG CAP PO SCH ×3 (08:58→20:43)
[2016-11-23] MEDS: ASPIRIN EC 81 MG TABEC PO SCH (08:58)
[2016-11-23] MEDS: CARVEDILOL 12.5 MG TAB PO SCH ×2 (08:59→20:41)
[2016-11-23] MEDS: POTASSIUM CHLORIDE 20 MEQ CONTROLLED RELEASE TAB PO SCH ×2 (08:59→20:42)
[2016-11-23] MEDS: AMOXICILLIN/CLAVULANATE K 875 MG TAB PO SCH ×2 (08:59→20:42)
[2016-11-23] MEDS: DIGOXIN 0.125 MG TAB PO SCH (08:59)
[2016-11-23] MEDS: TORSEMIDE 20 MG TAB PO SCH ×2 (09:00→20:44)
[2016-11-23] MEDS: ISOSORBIDE MONONITRATE 20 MG TAB PO SCH ×2 (09:00→20:41)
[2016-11-23] MEDS: SODIUM CHLORIDE 0.9% FLUSH 5 ML FLUSH FLUSH SCH ×2 (09:00→20:45)
[2016-11-23] MEDS ORDERED: INFLUENZA VIRUS VACCINE (QUADRIVALENT) 0.5 ML SYR IM ONE (10:00)
--- NOTE | 2016-11-23 11:26 | PD.CARD.PN ---
Subjective Subjective Remarks 4AM had gripping pain center of chest radiating up his neck. It woke him up. He was weraing CPAP. Also relates dentist found left maxillary sinusitis and needs a tooth pulled and sinus drained. Has not lost weight despite multiple counseling efforts (he can't stop snacking). He has been doing vigorous swimming before admit without angina. He came in the hospital for severe abdominal pain that has resolved. Thinks he's had a touch of flu - was in bed 3 days before admit. Has not noticed any fever. Objective Medications Current Medications Medications (Trade) Dose Ordered Sig/Justyna Route Start Time Stop Time Status Last Admin (D50w (Vial) Inj) 25 ml UNSCH PRN IV PUSH 11/22/16 03:45 (Glucagon Inj) 1 mg UNSCH PRN OTHER 11/22/16 03:45 (Augmentin) 875 mg Q12HR PO 11/22/16 09:00 11/23/16 08:59 (NS Flush) 2 ml UNSCH PRN FLUSH 11/22/16 03:45 (NS Flush) 2 ml BID FLUSH 11/22/16 09:00 11/23/16 09:00 (Zofran Inj) 4 mg Q6H PRN IVP 11/22/16 03:45 (Dulcolax Supp) 10 mg DAILY PRN TX 11/22/16 03:45 (Tylenol) 650 mg Q6H PRN PO 11/22/16 03:45 ([place] 5-325 Mg) 1 tab Q4H PRN PO 11/22/16 03:45 (Morphine Inj) 2 mg Q3H PRN IV 11/22/16 03:45 11/23/16 03:00 (Lipitor) 80 mg HS PO 11/22/16 21:00 11/22/16 20:49 (Lanoxin) 0.125 mg DAILY PO 11/22/16 09:00 11/23/16 08:59 (Cymbalta Dr) 60 mg HS PO 11/22/16 21:00 11/22/16 20:48 (Ismo) 60 mg BID PO 11/22/16 09:00 11/23/16 09:00 (Lyrica) 100 mg TID PO 11/22/16 09:00 11/23/16 08:58 (Requip) 4 mg HS PO 11/22/16 21:00 11/22/16 20:48 (Ecotrin Ec) 81 mg DAILY PO 11/22/16 09:00 11/23/16 08:58 (Demadex) 50 mg BID PO 11/22/16 21:00 11/23/16 09:00 (Eliquis) 2.5 mg BID PO 11/22/16 09:30 11/23/16 08:58 (Coreg) 25 mg Q12HR PO 11/22/16 09:15 11/23/16 08:59 (Pill Splitter) 1 ea UNSCH PRN OTHER 11/22/16 09:30 (KCl) 20 meq Q12HR PO 11/22/16 21:00 11/23/16 08:59 (Levemir Inj) 60 units HS SQ 11/22/16 21:00 11/22/16 20:49 (Nitrostat Sl) 0.3 mg Q5M PRN SL 11/23/16 03:30 11/23/16 03:40 Vital Signs / I&O Vital Signs Date Time Temp Pulse Resp B/P Pulse Ox O2 Delivery O2 Flow Rate FiO2 11/23/16 10:00 63 11/23/16 09:00 64 11/23/16 08:00 68 11/23/16 07:00 73 11/23/16 07:00 96.7 73 18 112/67 98 11/23/16 03:30 60 11/23/16 03:30 98.0 60 15 136/79 95 11/22/16 23:30 59 11/22/16 23:30 97.9 59 15 95/60 95 11/22/16 20:43 95 21 11/22/16 19:24 97.7 60 17 122/72 95 11/22/16 19:00 60 11/22/16 16:00 98.0 82 18 136/81 95 11/22/16 16:00 68 11/22/16 14:24 94 21 11/22/16 12:00 82 11/22/16 12:00 98.2 82 18 143/68 95 I/O 11/22/16 11/22/16 11/22/16 11/23/16 11/23/16 11/23/16 07:00 15:00 23:00 07:00 15:00 23:00 Intake Total 1200 ml 480 ml 400 ml Output Total 200 ml 1025 ml 500 ml 500 ml Balance -200 ml 175 ml -20 ml -100 ml Intake Oral 1200 ml 480 ml 400 ml Output Urine Total 200 ml 1025 ml 500 ml 500 ml # Bowel Movements 0 Physical Exam Obes, Alert, NAD Chest clear CV S1S2 RRR Abdomen soft/ nontender Ext no edema Laboratory Laboratory Tests Test 11/22/16 11/23/16 13:25 05:09 Troponin I 0.21 NG/ML 0.13 NG/ML Sodium Level 142 MEQ/L Potassium Level 4.0 MEQ/L Chloride Level 102 MEQ/L Carbon Dioxide Level 34.3 MEQ/L Anion Gap 6 MEQ/L Blood Urea Nitrogen 48 MG/DL Creatinine 2.33 MG/DL Estimat Glomerular Filtration 28 ML/MIN Rate Random Glucose 199 MG/DL Calcium Level 9.3 MG/DL Imaging Last 48 hours Impressions Chest X-Ray 11/21/162123 Signed Impressions: Service Date/Time: Monday, November 21, 2016 21:54 - CONCLUSION: No acute disease. No significant change has occurred. Kameron Andre MD Assessment and Plan Problem List: (1) Unstable angina (2) Renal insufficiency (3) Ischemic cardiomyopathy (4) CKD (chronic kidney disease), stage III (5) CAD (coronary artery disease) Assessment and Plan Very complicated clinical picture. Very high risk for heart cath. Will monitor - possible cath later in the week depending on clincal course but high risk for renal failure. Has left maxillary sinusitis complicating things further. Junior Rodriguez MD Nov 23, 2016 11:26
[2016-11-23] MEDS ORDERED: LORazepam 1 MG TAB PO PRN (16:00)
[2016-11-23] MEDS: DULoxetine HCl DR 60 MG CAP PO SCH (20:41)
[2016-11-23] MEDS: ATORVASTATIN 80 MG TAB PO SCH (20:42)
[2016-11-23] MEDS: INSULIN DETEMIR 100 UNITS/ML VIAL SQ SCH (20:44)
[2016-11-24] VITALS (8 sets, daily range): BP systolic 131–148; BP diastolic 75–80; PULSE 59–77; RESP 18; TEMP 97.5–98.7; O2SAT 95–96
[2016-11-24 05:26] LABS: AUTOMATED NEUTROPHIL # 5.5 TH/MM3 (1.8-7.7); BASOPHIL # 0.1 TH/MM3 (0-0.2); BASOPHIL % 0.9 % (0.0-2.0); EOSINOPHIL # 0.6 TH/MM3 (0-0.4); EOSINOPHIL % 6.7 % (0.0-4.0); HEMATOCRIT 44.6 % (39.0-51.0); HEMO FLAGS DIFF FINAL; LYMPH % 18.6 % (9.0-44.0); LYMPHOCYTE # 1.6 TH/MM3 (1.0-4.8); MEAN CELL VOLUME 98.3 FL (80.0-100.0); MEAN CORPUSCULAR HEMOGLOBIN 33.6 PG (27.0-34.0); MEAN CORPUSCULAR HGB CONC 34.2 % (32.0-36.0); MONO % 9.9 % (0.0-8.0); NEUT % 63.9 % (16.0-70.0); PLATELET COUNT 152 TH/MM3 (150-450); RED BLOOD COUNT 4.54 MIL/MM3 (4.50-5.90); RED CELL DISTRIBUTION WIDTH 15.7 % (11.6-17.2); WHITE BLOOD COUNT 8.6 TH/MM3 (4.0-11.0)
[2016-11-24 05:42] LABS: BICARBONATE 31.2 MEQ/L (21.0-32.0); POTASSIUM 3.8 MEQ/L (3.5-5.1)
[2016-11-24] MEDS: INSULIN ASPART SUPPLEMENTAL SCALE SQ SCH (06:18)
[2016-11-24] MEDS ORDERED: ASPIRIN 81 MG CHEW TAB PO SCH (09:00)
--- NOTE | 2016-11-24 09:25 | PD.CARD.PN ---
Subjective Subjective Remarks No angina. Feels great. Asking to go home Objective Medications Current Medications Medications (Trade) Dose Ordered Sig/Justyna Route Start Time Stop Time Status Last Admin (D50w (Vial) Inj) 25 ml UNSCH PRN IV PUSH 11/22/16 03:45 (Glucagon Inj) 1 mg UNSCH PRN OTHER 11/22/16 03:45 (Augmentin) 875 mg Q12HR PO 11/22/16 09:00 11/23/16 20:42 (NS Flush) 2 ml UNSCH PRN FLUSH 11/22/16 03:45 (NS Flush) 2 ml BID FLUSH 11/22/16 09:00 11/23/16 20:45 (Zofran Inj) 4 mg Q6H PRN IVP 11/22/16 03:45 (Dulcolax Supp) 10 mg DAILY PRN OR 11/22/16 03:45 (Tylenol) 650 mg Q6H PRN PO 11/22/16 03:45 ([place] 5-325 Mg) 1 tab Q4H PRN PO 11/22/16 03:45 (Morphine Inj) 2 mg Q3H PRN IV 11/22/16 03:45 11/23/16 03:00 (Lipitor) 80 mg HS PO 11/22/16 21:00 11/23/16 20:42 (Lanoxin) 0.125 mg DAILY PO 11/22/16 09:00 11/23/16 08:59 (Cymbalta Dr) 60 mg HS PO 11/22/16 21:00 11/23/16 20:41 (Ismo) 60 mg BID PO 11/22/16 09:00 11/23/16 20:41 (Requip) 4 mg HS PO 11/22/16 21:00 11/23/16 20:42 (Demadex) 50 mg BID PO 11/22/16 21:00 11/23/16 20:44 (Eliquis) 2.5 mg BID PO 11/22/16 09:30 Hold 11/23/16 08:58 (Coreg) 25 mg Q12HR PO 11/22/16 09:15 11/23/16 20:41 (Pill Splitter) 1 ea UNSCH PRN OTHER 11/22/16 09:30 (KCl) 20 meq Q12HR PO 11/22/16 21:00 11/23/16 20:42 (Levemir Inj) 60 units HS SQ 11/22/16 21:00 11/23/16 20:44 (Nitrostat Sl) 0.3 mg Q5M PRN SL 11/23/16 03:30 11/23/16 03:40 (Aspirin Chew) 81 mg DAILY PO 11/24/16 09:00 (Ativan) 1 mg Q12H PRN PO 11/23/16 16:00 (Lyrica) 100 mg TID@,,21 PO 11/23/16 21:00 11/23/16 20:43 Vital Signs / I&O Vital Signs Date Time Temp Pulse Resp B/P Pulse Ox O2 Delivery O2 Flow Rate FiO2 11/24/16 06:19 64 11/24/16 05:00 98.7 65 18 131/75 95 11/24/16 05:00 63 11/24/16 04:00 59 11/24/16 03:00 72 11/24/16 02:00 70 11/24/16 01:00 77 11/24/16 00:00 68 11/23/16 22:00 77 11/23/16 21:00 95 11/23/16 20:00 98.0 81 18 158/75 95 11/23/16 20:00 80 11/23/16 19:00 78 11/23/16 18:00 62 11/23/16 17:00 64 11/23/16 16:00 65 11/23/16 15:45 98.7 75 18 121/69 95 11/23/16 15:45 75 11/23/16 15:00 79 11/23/16 14:00 59 11/23/16 13:00 61 11/23/16 11:50 64 11/23/16 11:50 98.0 64 18 120/77 96 11/23/16 11:00 66 11/23/16 10:00 63 I/O 11/23/16 11/23/16 11/23/16 11/24/16 11/24/16 11/24/16 07:00 15:00 23:00 07:00 15:00 23:00 Intake Total 480 ml 400 ml 480 ml 480 ml Output Total 500 ml 500 ml 300 ml 1250 ml Balance -20 ml -100 ml 180 ml -770 ml Intake Oral 480 ml 400 ml 480 ml 480 ml Output Urine Total 500 ml 500 ml 300 ml 1250 ml # Bowel Movements 0 Physical Exam Obes, Alert, NAD Chest clear CV S1S2 RRR Abdomen soft/ nontender Ext no edema Laboratory Laboratory Tests Test 11/24/16 04:54 White Blood Count 8.6 TH/MM3 Red Blood Count 4.54 MIL/MM3 Hemoglobin 15.2 GM/DL Hematocrit 44.6 % Mean Corpuscular Volume 98.3 FL Mean Corpuscular Hemoglobin 33.6 PG Mean Corpuscular Hemoglobin 34.2 % Concent Red Cell Distribution Width 15.7 % Platelet Count 152 TH/MM3 Mean Platelet Volume 9.8 FL Neutrophils (%) (Auto) 63.9 % Lymphocytes (%) (Auto) 18.6 % Monocytes (%) (Auto) 9.9 % Eosinophils (%) (Auto) 6.7 % Basophils (%) (Auto) 0.9 % Neutrophils # (Auto) 5.5 TH/MM3 Lymphocytes # (Auto) 1.6 TH/MM3 Monocytes # (Auto) 0.9 TH/MM3 Eosinophils # (Auto) 0.6 TH/MM3 Basophils # (Auto) 0.1 TH/MM3 CBC Comment DIFF FINAL Differential Comment Sodium Level 141 MEQ/L Potassium Level 3.8 MEQ/L Chloride Level 104 MEQ/L Carbon Dioxide Level 31.2 MEQ/L Anion Gap 6 MEQ/L Blood Urea Nitrogen 54 MG/DL Creatinine 2.28 MG/DL Estimat Glomerular Filtration 29 ML/MIN Rate Random Glucose 232 MG/DL Calcium Level 9.1 MG/DL Troponin I 0.10 NG/ML Assessment and Plan Problem List: (1) Unstable angina Assessment and Plan: No further chest pain. Asking to go home (2) Renal insufficiency Assessment and Plan: chronic (3) Ischemic cardiomyopathy (4) CKD (chronic kidney disease), stage III (5) CAD (coronary artery disease) Assessment and Plan OK with me to DC home. He plans to get abcessed tooth pulled (off Eliquis 48 hours prior). Junior Rodriguez MD Nov 24, 2016 09:25
[2016-11-24] MEDS: CARVEDILOL 12.5 MG TAB PO SCH (09:34)
[2016-11-24] MEDS: POTASSIUM CHLORIDE 20 MEQ CONTROLLED RELEASE TAB PO SCH (09:35)
[2016-11-24] MEDS: SODIUM CHLORIDE 0.9% FLUSH 5 ML FLUSH FLUSH SCH (09:35)
[2016-11-24] MEDS: ISOSORBIDE MONONITRATE 20 MG TAB PO SCH (09:35)
[2016-11-24] MEDS: PREGABALIN 100 MG CAP PO SCH (09:35)
[2016-11-24] MEDS: DIGOXIN 0.125 MG TAB PO SCH (09:35)
[2016-11-24] MEDS: AMOXICILLIN/CLAVULANATE K 875 MG TAB PO SCH (10:32)
[2016-11-24] MEDS: TORSEMIDE 20 MG TAB PO SCH (10:41)
--- NOTE | 2016-11-24 10:54 | HHI.PR ---
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 Patient says he had a better night, No chest pain or sob overnight, He did sleep better. No n/v/d/c. No sweting. Denies cough, fever or chills. Objective Vitals Vital Signs Date Time Temp Pulse Resp B/P Pulse Ox O2 Delivery O2 Flow Rate FiO2 11/24/16 07:30 75 11/24/16 06:19 64 11/24/16 05:00 98.7 65 18 131/75 95 11/24/16 05:00 63 11/24/16 04:00 59 11/24/16 03:00 72 11/24/16 02:00 70 11/24/16 01:00 77 11/24/16 00:00 68 11/23/16 22:00 77 11/23/16 21:00 95 11/23/16 20:00 98.0 81 18 158/75 95 11/23/16 20:00 80 11/23/16 19:00 78 11/23/16 18:00 62 11/23/16 17:00 64 11/23/16 16:00 65 11/23/16 15:45 98.7 75 18 121/69 95 11/23/16 15:45 75 11/23/16 15:00 79 11/23/16 14:00 59 11/23/16 13:00 61 11/23/16 11:50 64 11/23/16 11:50 98.0 64 18 120/77 96 11/23/16 11:00 66 I/O 11/23/16 11/23/16 11/23/16 11/24/16 11/24/16 11/24/16 06:59 14:59 22:59 06:59 14:59 22:59 Intake Total 480 ml 400 ml 480 ml 480 ml Output Total 500 ml 500 ml 300 ml 1250 ml Balance -20 ml -100 ml 180 ml -770 ml Intake Oral 480 ml 400 ml 480 ml 480 ml Output Urine Total 500 ml 500 ml 300 ml 1250 ml # Bowel Movements 0 Result Diagram: 11/24/164 11/24/16453 Imaging Last Impressions Chest X-Ray 11/21/162123 Signed Impressions: Service Date/Time: Monday, November 21, 2016 21:54 - CONCLUSION: No acute disease. No significant change has occurred. Kameron Andre MD Abdomen/Pelvis CT 11/21/16 0000 Signed Impressions: Service Date/Time: Tuesday, November 22, 2016 00:44 - CONCLUSION: 1. Mild enlargement of the prostate. 2. No renal stones or hydronephrosis. 3. No dilated loops of small large bowel. 4. Small fat containing left inguinal hernia. Migel Kirby MD Objective Remarks GENERAL: Very pleasant elderly white male in no acute distress. HEENT: PERRLA, EOMI. No scleral icterus or conjunctival pallor. No lid lag or facial droop. +mild left maxillary sinus tenderness to palpation CARDIOVASCULAR: Regular rate and rhythm. No obvious murmurs to auscultation. No chest tenderness to palpation. RESPIRATORY: No obvious rhonchi or wheezing. Clear to auscultation. Breath sounds equal bilaterally. GASTROINTESTINAL: Abdomen soft, non-tender, nondistended. BS normal. MUSCULOSKELETAL: Extremities without clubbing, cyanosis, or edema. No obvious deformities. NEUROLOGICAL: Awake, alert and oriented x4. No focal neurologic deficits. Moving both upper and lower extremities spontaneously. A/P Problem List: (1) Unstable angina ICD Code: I20.0 Status: Acute (2) CHF (congestive heart failure) ICD Code: I50.9 Status: Chronic (3) Renal insufficiency ICD Code: N28.9 Status: Acute (4) Dental abscess ICD Code: K04.7 Status: Acute (5) Abdominal pain ICD Code: R10.9 Status: Acute (6) HTN (hypertension) ICD Code: I10 Status: Chronic (7) DM (diabetes mellitus) ICD Code: E11.9 Status: Chronic Assessment and Plan 71 yo female with PMH of HTN, CAD, CHF, s/p AICD, h/o DVT s/p IVC filter, sleep apnea, DM, and CKD stage 3 who presented to ER with SOB and CP, admitted for unstable angina and acute CHF exacerbation. 1. Unstable Angina: h/o CAD, now w/ c/o chest pain. Follows w/ Dr. Rodriguez as outpatient, Dr. Lorenzo consulted and following. Continue torsemide 50 mg PO BID, Eliquis 2.5 mg BID, Carvedilol 25 mg BID. Trop 0.2->0.1->0.1. EKGs reviewed some ST changes noted in anterolateral leads appear similar to previous. Poss cardiac cath per cards. However patient remained asymptomatic. Cleared by Dr Rodriguez his cards for DC to follow up as OP 2. CHF: Acute on Chronic. Systolic. Echo 01/01/15 w/ EF 25-30%, s/p AICD ( [employer]) reports an ECHO performed in [place] in summer 2015 that was unchanged from previous. BNP on admission 2488, repeat 1820. ECHO ordered and pending. Strict I & Os. Fluid restrict. Diuresis per cards- torsemide 50 mg BID (with KCl bonita) 3. Renal Insufficiency: Acute on Chronic. h/o CKD Stage III. Creatinine 2.23 , previously 1.69 on 08/26/15. 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 Cr improving today. Caution with aggressive diuresis. 4. Dental Abscess: recent diagnosis of left dental/maxillary abscess, self- medicating w/ Cipro x3 days. Upcoming appt w/ Dentist/[facility] on Wednesday for intervention. +WBC, Afebrile. Augmentin 875mg bid, outpatient follow up. 5. Abdominal Pain: On arrival, complaints of abdominal pain, pt concerned for possible volvulus however CT Abd/Pelvis negative for acute findings. S/p Morphine in ER w/ significant improvement. 6. DM: Sliding scale w/ Accu-Cheks. Resume home Lantus. 7. DVT Prophylaxis: Hold Eliquis per Cardiology recommendations. 8. Hypokalemia: 3.4, 30 meq KCL x1 now, then 20 meq BID Case management for d/c planning as needed. Discharge Planning Discharge home. Problem Qualifiers (1) CHF (congestive heart failure): Qualified Code: I50.9 - Acute on chronic congestive heart failure, unspecified congestive heart failure type (2) Abdominal pain: Qualified Code: R10.9 - Abdominal pain, unspecified location Abimbola Lockhart MD Nov 24, 2016 10:54
--- NOTE | 2016-11-24 11:07 | HHI.DS ---
Discharge Summary Admission Date Nov 22, 2016 at 02:00 Discharge Date: Nov 24, 2016 Admitting Diagnosis (1) Unstable angina ICD Code: I20.0 Diagnosis: Principal (2) CHF (congestive heart failure) ICD Code: I50.9 Diagnosis: Secondary (3) Renal insufficiency ICD Code: N28.9 Diagnosis: Secondary (4) Abdominal pain ICD Code: R10.9 Diagnosis: Secondary (5) HTN (hypertension) ICD Code: I10 Diagnosis: Secondary (6) DM (diabetes mellitus) ICD Code: E11.9 Diagnosis: Secondary Procedures none Brief History - From Admission This is a 71-year-old male with a PMH of HTN, CAD, CHF (Echo 01/01/15 w/ EF 25-30 %), s/p AICD ([employer]), h/o DVT s/p IVC Filter, Sleep Apnea, DM and CKD Stage III who came into the ER w/ complaints of SOB and chest pain. Per pt, he's had progressive SOB x3 days, worse w/ exertion. Denies cough or sick contacts. Also notes generalized abdominal pain, however no nausea/vomiting. Reports recent diagnosis of dental/maxillary abscess approx 2wks ago, has been self- medicating w/ Cipro x3 days which he had at home. Upcoming appt w/ Dentist/[facility] on Wednesday for decision regarding management. +post-nasal drip. On arrival, BP 194/144, HR 105, O2 sat 93% on 4L NC, Afebrile. Not on home O2. Currently BP 152/87, HR 95. WBC 14.5, elevated neutrophil count. Creatinine 2.23, previously 1.6 on 08/26/15. Troponin 0.29. BNP 2488. CXR w/ no acute findings. CT Abd/Pelvis w/ mild enlargement of the prostate and small fat- containing left inguinal hernia, no significant findings. S/p Morphine and NTG in ER w/ significant improvement in pain complaints, currently chest pain free. CBC/BMP: 11/24/16 0454 11/24/16 0454 Significant Findings Laboratory Tests Test 1/711/22/16 11/22/16 11/23/16 21:30 07:49 13:25 05:09 White Blood Count 14.5 TH/MM3 (4.0-11.0) Hemoglobin 18.6 GM/DL (13.0-17.0) Hematocrit 53.9 % (39.0-51.0) Neutrophils (%) (Auto) 75.4 % 71.2 % (16.0-70.0) (16.0-70.0) Monocytes (%) (Auto) 10.7 % 10.4 % (0.0-8.0) (0.0-8.0) Neutrophils # (Auto) 10.9 TH/MM3 (1.8-7.7) Monocytes # (Auto) 1.5 TH/MM3 1.0 TH/MM3 (0-0.9) (0-0.9) Carbon Dioxide Level 32.1 MEQ/L 33.3 MEQ/L 34.3 MEQ/L (21.0-32.0) (21.0-32.0) (21.0-32.0) Blood Urea Nitrogen 36 MG/DL (7-18) 37 MG/DL (7-18) 48 MG/DL (7-18) Creatinine 2.23 MG/DL 2.16 MG/DL 2.33 MG/DL (0.60-1.30) (0.60-1.30) (0.60-1.30) Estimat Glomerular Filtration 29 ML/MIN (>89) 30 ML/MIN (>89) 28 ML/MIN (>89) Rate Random Glucose 227 MG/DL 220 MG/DL 199 MG/DL (74-106) (74-106) (74-106) Total Bilirubin 2.2 MG/DL 2.0 MG/DL (0.2-1.0) (0.2-1.0) Aspartate Amino Transf 39 U/L (15-37) 46 U/L (15-37) (AST/SGOT) Troponin I 0.29 NG/ML 0.30 NG/ML 0.21 NG/ML 0.13 NG/ML (0.02-0.05) (0.02-0.05) (0.02-0.05) (0.02-0.05) B-Type Natriuretic Peptide 2488 PG/ML 1820 PG/ML (0-100) (0-100) Total Protein 8.5 GM/DL (6.4-8.2) Platelet Count 138 TH/MM3 (150-450) Potassium Level 3.4 MEQ/L (3.5-5.1) Alkaline Phosphatase 150 U/L (45-117) Albumin 3.0 GM/DL (3.4-5.0) Test 11/24/16 04:54 Monocytes (%) (Auto) 9.9 % (0.0-8.0) Eosinophils (%) (Auto) 6.7 % (0.0-4.0) Eosinophils # (Auto) 0.6 TH/MM3 (0-0.4) Blood Urea Nitrogen 54 MG/DL (7-18) Creatinine 2.28 MG/DL (0.60-1.30) Estimat Glomerular Filtration 29 ML/MIN (>89) Rate Random Glucose 232 MG/DL (74-106) Troponin I 0.10 NG/ML (0.02-0.05) Imaging Last Impressions Chest X-Ray 11/21/164 Signed Impressions: Service Date/Time: Monday, November 21, 2016 21:54 - CONCLUSION: No acute disease. No significant change has occurred. Kameron Andre MD Abdomen/Pelvis CT 11/21/16 0000 Signed Impressions: Service Date/Time: Tuesday, November 22, 2016 00:44 - CONCLUSION: 1. Mild enlargement of the prostate. 2. No renal stones or hydronephrosis. 3. No dilated loops of small large bowel. 4. Small fat containing left inguinal hernia. Migel Kirby MD PE at Discharge GENERAL: Very pleasant elderly white male in no acute distress. HEENT: PERRLA, EOMI. No scleral icterus or conjunctival pallor. No lid lag or facial droop. +mild left maxillary sinus tenderness to palpation CARDIOVASCULAR: Regular rate and rhythm. No obvious murmurs to auscultation. No chest tenderness to palpation. RESPIRATORY: No obvious rhonchi or wheezing. Clear to auscultation. Breath sounds equal bilaterally. GASTROINTESTINAL: Abdomen soft, non-tender, nondistended. BS normal. MUSCULOSKELETAL: Extremities without clubbing, cyanosis, or edema. No obvious deformities. NEUROLOGICAL: Awake, alert and oriented x4. No focal neurologic deficits. Moving both upper and lower extremities spontaneously. Hospital Course 71 yo female with PMH of HTN, CAD, CHF, s/p AICD, h/o DVT s/p IVC filter, sleep apnea, DM, and CKD stage 3 who presented to ER with SOB and CP, admitted for unstable angina and acute CHF exacerbation. 1. Unstable Angina: h/o CAD, now w/ c/o chest pain. Follows w/ Dr. Rodriguez as outpatient, Dr. Lorenzo consulted and following. Continue torsemide 50 mg PO BID, Eliquis 2.5 mg BID, Carvedilol 25 mg BID. Trop 0.2->0.1->0.1. EKGs reviewed some ST changes noted in anterolateral leads appear similar to previous. Poss cardiac cath per cards. However patient remained asymptomatic. Cleared by Dr Rodriguez his cards for DC to follow up as OP 2. CHF: Acute on Chronic. Systolic. Echo 01/01/15 w/ EF 25-30%, s/p AICD ( [employer]) reports an ECHO performed in [place] in summer 2015 that was unchanged from previous. BNP on admission 2488, repeat 1820. ECHO ordered and pending. Strict I & Os. Fluid restrict. Diuresis per cards- torsemide 50 mg BID (with KCl bonita) 3. Renal Insufficiency: Acute on Chronic. h/o CKD Stage III. Creatinine 2.23 , previously 1.69 on 08/26/15. 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 Cr improving today. Caution with aggressive diuresis. 4. Dental Abscess: recent diagnosis of left dental/maxillary abscess, self- medicating w/ Cipro x3 days. Upcoming appt w/ Dentist/[facility] on Wednesday for intervention. +WBC, Afebrile. Augmentin 875mg bid, outpatient follow up. 5. Abdominal Pain: On arrival, complaints of abdominal pain, pt concerned for possible volvulus however CT Abd/Pelvis negative for acute findings. S/p Morphine in ER w/ significant improvement. 6. DM: Sliding scale w/ Accu-Cheks. Resume home Lantus. 7. DVT Prophylaxis: Hold Eliquis per Cardiology recommendations. 8. Hypokalemia: 3.4, 30 meq KCL x1 now, then 20 meq BID Patient improved, cleared by cardiology for DC to follow up as OP with PCP and consultants. Pt Condition on Discharge: Fair Discharge Disposition: Discharge Home Discharge Time: <= 30 minutes Discharge Instructions DIET: Follow Instructions for: Heart Healthy Diet, Diabetic Diet Activities you can perform: Regular-No Restrictions Follow up Referrals: Cardiology - 1 Week with Junior Rodriguez MD PCP Follow-up - 3-5 Days Continued Medications: Apixaban (Eliquis) 2.5 Mg Tab 2.5 MG PO BID Blood Clot Prevention Ref 0 TAB Aspirin (Aspirin) 81 Mg Chew 81 MG CHEW DAILY Ref 0 TAB Atorvastatin (Atorvastatin) 80 Mg Tab 80 MG PO HS Cholesterol Management #30 Ref 0 TAB Carvedilol (Carvedilol) 25 Mg Tab 25 MG PO BID #60 Ref 0 TAB Ciprofloxacin (Ciprofloxacin) 500 Mg Tab 500 MG PO BID Infection Ref 0 TAB Clopidogrel (Plavix) 75 Mg Tab 75 MG PO DAILY Blood Clot Prevention #30 Ref 0 TAB Digoxin (Digoxin) 0.125 Mg Tab 0.125 MG PO DAILY Regulate Heart Beat #[address] Ref [address] (Cymbalta DR) 60 Mg Capdr 60 MG PO HS #30 Ref 0 CAP Insulin Aspart Inj (Novolog Inj) 1,000 Unit/10 Ml Vial 0 SQ DIRECTED Sliding Scale as directed. Blood Sugar Management #10 Ref 0 ML Insulin Glargine Inj (Lantus Inj) 1,000 Unit/10 Ml Vial 60 UNITS SQ HS Blood Sugar Management Ref 0 VIAL Isosorbide Mononitrate (Isosorbide Mononitrate) 20 Mg Tab 60 MG PO BID Take 2 doses 7 hours apart. Prevent Chest Pain #60 Ref 0 TAB Loperamide (Imodium A-D) 2 Mg Cap 2 MG PO DIRECTED One capsule after each loose stool. Not to exceed 8 tablets per day. PRN DIARRHEA Ref 0 CAP Lorazepam (Lorazepam) 1 Mg Tab 1 MG PO prn PRN ANXIETY Ref 0 TAB Potassium (Potassium) 75 Mg Tab 200 MEQ PO BID Pregabalin (Lyrica) 100 Mg Cap 100 MG PO TID #90 Ref 0 CAP Ropinirole (Ropinirole) 4 Mg Tab 4 MG PO HS #30 Ref 0 TAB Testosterone (Bulk) (Testosterone) 1 Pow Pow 200 MG IM q 3 weeks Torsemide (Torsemide) 100 Mg Tab 50 MG PO DAILY #30 Ref 0 TAB Valacyclovir (Valacyclovir) 1 Gm Tab 1000 MG PO DAILY Mgmt Viral Infection #30 Ref 0 TAB Cosma,Abimbola MD Nov 24, 2016 11:07
--- NOTE | 2016-11-24 11:07 | HHI.DCPOC ---
Discharge Care Plan Goals to Promote Your Health * To prevent worsening of your condition and complications * To maintain your health at the optimal level Directions to Meet Your Goals Take your medications as prescribed Follow your dietary instruction Follow activity as directed Keep your appointments as scheduled Take your immunizations and boosters as scheduled If your symptoms worsen call your PCP, if no PCP go to Urgent Care Center or Emergency Room Smoking is Dangerous to Your Health. Avoid second hand smoke Call the 24-hour hour crisis hotline for domestic abuse at Abimbola Lockhart MD Nov 24, 2016 11:06
== END 2016-11-24 11:32 | disposition home or self-care (01) | DRG 302 ==
LOC: NEPC 21:01 → NEDA 11-22 02:00 → NEDH 11-22 05:10 → HCVR 11-22 06:55 → HCIN 11-23 10:12
PROVIDERS: ADMIT Hospitalist; ATTEND Hospitalist
DX: I25.110 Atherosclerotic heart disease of native coronary artery with unstable angina pectoris (principal); I50.23 Acute on chronic systolic (congestive) heart failure; G62.9 Polyneuropathy, unspecified; E11.22 Type 2 diabetes mellitus with diabetic chronic kidney disease; N18.3 Chronic kidney disease, stage 3 (moderate); I48.0 Paroxysmal atrial fibrillation; E87.6 Hypokalemia; G47.30 Sleep apnea, unspecified; E78.5 Hyperlipidemia, unspecified; I13.0 Hypertensive heart and chronic kidney disease with heart failure and stage 1 through stage 4 chronic kidney disease, or unspecified chronic kidney disease; I25.5 Ischemic cardiomyopathy; R10.84 Generalized abdominal pain; N40.0 Benign prostatic hyperplasia without lower urinary tract symptoms; K40.90 Unilateral inguinal hernia, without obstruction or gangrene, not specified as recurrent; R74.8 Abnormal levels of other serum enzymes; K04.6 Periapical abscess with sinus; J32.0 Chronic maxillary sinusitis; H91.90 Unspecified hearing loss, unspecified ear; I25.2 Old myocardial infarction; Z79.01 Long term (current) use of anticoagulants; Z86.718 Personal history of other venous thrombosis and embolism; Z90.49 Acquired absence of other specified parts of digestive tract; Z95.5 Presence of coronary angioplasty implant and graft; Z86.72 Personal history of thrombophlebitis; Z79.82 Long term (current) use of aspirin; Z95.810 Presence of automatic (implantable) cardiac defibrillator; Z79.4 Long term (current) use of insulin; Z85.820 Personal history of malignant melanoma of skin
CPT/HCPCS: 71010; 74176; 80048; 80053; 82550; 82552; 82948; 83690; 83735; 83880; 84484; 85025; 85610; 85730; 93005; 96374; 96375; J1815; J2270; J2405